=== PATIENT | male | born 1945 | race Caucasian/White ===

== ENCOUNTER 2020-11-25 15:06 | Emergency (ER) | payer MEDICARE, BC ==
[2020-11-25] MEDS ORDERED: fentaNYL 100 MCG/2 ML SDV ONE (16:05)
[2020-11-25] MEDS ORDERED: Midazolam 1 MG/ML 2 ML SDV ONE (16:06)
[2020-11-25] MEDS ORDERED: Midazolam 1 MG/ML 2 ML SDV IVPUSH ONE (16:08)
[2020-11-25] MEDS ORDERED: fentaNYL 100 MCG/2 ML SDV IVPUSH ONE (16:08)
--- NOTE | 2020-11-25 16:38 | EDM.PDOC ---
ED HPI GENERAL MEDICAL PROBLEM - General Chief Complaint: Lower Extremity Injury/Pain Stated Complaint: right hip pain Time Seen by Provider: 11/25/20 15:35 Source of Information: Reports: Patient History Limitations: Reports: No Limitations - History of Present Illness INITIAL COMMENTS - FREE TEXT/NARRATIVE: Sam is a pleasant 75 yo male who presents to the ED with c/o right hip pain. He reports he was crossing his right leg over to tie his shoes and had a popping sensation and instant pain. He reports he has been unable to bear weight since. Does report right DIOR [place] [address] Galvan. Has not had issues with hip since that time but does have some chronic LBP. Has chronic numbness to BLE due to back issues. No changes in baseline sensation of RLE. Is able to wiggle toes. Denies pain at rest. Did receive 100 mcg fentanyl enroute with EMS. ALso took a [facility] tab prior to arrival. He denies any other injury or complaint. Onset: Today, Sudden Onset Date: 11/25/20 Onset Time: 14:00 Duration: Constant Location: Reports: Lower Extremity, Right Quality: Reports: Throbbing Severity: Moderate Improves with: Reports: Cold Therapy, Medication Worsens with: Reports: Movement Associated Symptoms: Reports: No Other Symptoms Treatments FIELD REPRESENTATIVE: Reports: Other Medication(s) ([facility] and fentanyl) Right Hip Pain Score (Numeric/FACES): 5 - Related Data Allergies Allergy/AdvReac Type Severity Reaction Status Date / Time codeine Allergy Nausea and Verified 11/25/20 15:31 Vomiting Home Meds: Home Meds Hydrocodone/Acetaminophen [Hydrocodone-Acetamin 7.5-325] 7.5 mg PO Q6HR PRN 11/25/20 [History] allopurinoL [Zyloprim] 100 mg PO DAILY 11/25/20 [History] Past Medical History Musculoskeletal History: Reports: Gout - Infectious Disease History Infectious Disease History: Reports: None - Past Surgical History HEENT Surgical History: Reports: Eye Surgery Musculoskeletal Surgical History: Reports: Carpal Tunnel, Hip Replacement Social & Family History - Family History Family Medical History: No Pertinent Family History - Tobacco Use Tobacco Use Status *Q: Unknown Ever Used Tobacco - Caffeine Use Caffeine Use: Reports: Coffee - Recreational Drug Use Recreational Drug Use: No Review of Systems - Review of Systems Review Of Systems: Comprehensive ROS is negative, except as noted in HPI. ED EXAM, GENERAL - Physical Exam Exam: See Below Exam Limited By: No Limitations General Appearance: Alert, WD/WN, No Apparent Distress Respiratory/Chest: No Respiratory Distress, Lungs Clear, Normal Breath Sounds, No Accessory Muscle Use, Chest Non-Tender Cardiovascular: Normal Peripheral Pulses, Regular Rate, Rhythm, No Edema, No Gallop, No JVD, No Murmur, No Rub Extremities: No Pedal Edema, Normal Capillary Refill, Joint Swelling (mild swelling of right hip ), Leg Pain (right hip/leg with movement), Limited Range of Motion (unable to flex/extend right hip) Neurological: Alert, Oriented, Normal Cognition, No Motor/Sensory Deficits Psychiatric: Normal Affect, Normal Mood Course - Vital Signs Last Recorded V/S: Last Vital Signs Temp 98.5 F 11/25/20 15:09 Pulse 57 L 11/25/20 15:09 Resp 18 11/25/20 15:09 BP 138/90 11/25/20 15:09 Pulse Ox 99 11/25/20 15:07 - Orders/Labs/Meds Orders: Active Orders 24 hr Category Date Time Status Hip Min 2V or 3V w Pelvis Rt [CR] Stat Exams 11/25/20 15:10 Taken Meds: Medications Discontinued Medications Generic Name Dose Route Start Last Admin Trade Name Rhea PRN Reason Stop Dose Admin Fentanyl 100 mcg 11/25/20 16:08 11/25/20 16:48 Fentanyl 100 Mcg/2 Ml Sdv IVPUSH 11/25/20 16:09 Not Given ONETIME ONE Fentanyl Confirm 11/25/20 16:05 11/25/20 16:48 Fentanyl 100 Mcg/2 Ml Sdv Administered 11/25/20 16:06 Not Given Dose 100 mcg .ROUTE .STK-MED ONE Fentanyl 50 mcg 11/25/20 17:06 11/25/20 17:10 Fentanyl 50 Mcg/Ml Sdv IVPUSH 11/25/20 17:07 50 mcg ONETIME ONE Administration Midazolam HCl 4 mg 11/25/20 16:08 11/25/20 16:48 Midazolam 1 Mg/Ml 2 Ml Sdv IVPUSH 11/25/20 16:09 Not Given ONETIME ONE Midazolam HCl Confirm 11/25/20 16:06 11/25/20 16:48 Midazolam 1 Mg/Ml 2 Ml Sdv Administered 11/25/20 16:07 Not Given Dose 4 mg .ROUTE .STK-MED ONE Departure - Departure Time of Disposition: 16:36 Disposition: DC/Tfer to Acute Hospital 02 Condition: Fair Clinical Impression: Dislocation of hip joint prosthesis Qualifiers: Encounter type: initial encounter Qualified Code(s): T84.029A - Dislocation of unspecified internal joint prosthesis, initial encounter Hip dislocation, right Qualifiers: Encounter type: initial encounter Qualified Code(s): S73.004A - Unspecified dislocation of right hip, initial encounter - Discharge Information *PRESCRIPTION DRUG MONITORING PROGRAM REVIEWED*: Not Applicable *COPY OF PRESCRIPTION DRUG MONITORING REPORT IN PATIENT FIGUEROA: Not Applicable Referrals: Lyric Ayoub, [employer] [Primary Care Provider] - Forms: ED Department Discharge Additional Instructions: - Transfer to [facility] ED via [facility] Sepsis Event Note (ED) - Evaluation Sepsis Screening Result: No Definite Risk - Focused Exam Vital Signs: Vital Signs Temp Pulse Resp BP Pulse Ox 11/25/20 15:09 98.5 F 57 L 18 138/90 11/25/20 15:07 57 L 18 138/90 99 - Problem List & Annotations (1) Dislocation of hip joint prosthesis SNOMED Code(s): 925807845 Code(s): T84.029A - DISLOCATION OF UNSP INTERNAL JOINT PROSTHESIS, INIT ENCNTR; Z96.649 - PRESENCE OF UNSPECIFIED ARTIFICIAL HIP JOINT Status: Acute Qualifiers: Encounter type: initial encounter Qualified Code(s): T84.029A - Dislocation of unspecified internal joint prosthesis, initial encounter; Z96.649 - Presence of unspecified artificial hip joint (2) Hip dislocation, right SNOMED Code(s): 811570646 Code(s): S73.004A - UNSPECIFIED DISLOCATION OF RIGHT HIP, INITIAL ENCOUNTER Status: Acute Qualifiers: Encounter type: initial encounter Qualified Code(s): S73.004A - Unspecified dislocation of right hip, initial encounter - Problem List Review Problem List Initiated/Reviewed/Updated: Yes - My Orders Last 24 Hours: My Active Orders 11/25/20 15:10 Hip Min 2V or 3V w Pelvis Rt [CR] Stat - Assessment/Plan Last 24 Hours: My Active Orders 11/25/20 15:10 Hip Min 2V or 3V w Pelvis Rt [CR] Stat Assessment:: Dislocation of right hip prosthesis Plan: 75 yo male presents with right hip pain. Reports popping sensation and sudden onset pain when crossing his legs to put shoes on. Unable to bear weight following. Status post right DIOR [place] [address] Galvan. Hip series reveal posterior-superior dislocation of right hip arthroplasty. No fracture. Patient pain well controlled when not moving hip. DId receive 1 [facility] as well as 100 mcg fentanyl prior to arrival to ED. Declines need for further pain medication while in ED. DId not attempt reduction given severity of prosthetic dislocation and time frame since dislocation. Consulted with [facility] ED provider, Dr. Banuelos, who accepted the patient for transfer. Patient will be transferred to [facility] via ALS. Discharged from facility in stable condition. Discussed risks and benefits of transfer with patient. Risks of transfer include pain, worsening of condition and MVA enroute. Benefits of transfer include higher level of care with orthopedic consultation. Risks of nontransfer include working of condition, pain, and inability to reduce joint. Benefits of nontransfer include convenience. Patient verbalized understanding and was agreeable to transfer.
[2020-11-25] MEDS ORDERED: Bacitracin/Neomycin/Polymyxin B Oint 0.9 GM U/D Packet TOP ONE (17:02)
[2020-11-25] MEDS ORDERED: fentaNYL 50 MCG/ML SDV IVPUSH ONE (17:06)
== END 2020-11-25 17:26 ==
LOC: CC.ED 15:06
DX: T84.020A Dislocation of internal right hip prosthesis, initial encounter (principal); Z88.5 Allergy status to narcotic agent
CPT/HCPCS: 73502; 96374; 99284; 99285; J3010

== ENCOUNTER 2024-02-13 16:40 | Observation (INO) | payer MEDICARE, BC ==
[2024-02-13] MEDS: Sodium Chloride 0.9% 1,000 ML IV SCH (17:48)
[2024-02-13] MEDS: Ondansetron 4 MG/2 ML SDV IVPUSH PRN (17:48)
[2024-02-13] MEDS ORDERED: Ondansetron 4 MG Tab.DIS PO PRN (18:56)
[2024-02-13] MEDS ORDERED: Acetaminophen 325 MG Tab PO PRN (18:56)
[2024-02-13] MEDS: Docusate Sodium 100 MG Cap PO SCH (20:55)
[2024-02-13] MEDS: Apixaban 5 MG Tab PO SCH (20:55)
[2024-02-13] MEDS: Acetaminophen/oxyCODONE 325-5 MG Tab PO PRN (20:56)
[2024-02-13] MEDS: Hydrocortisone Acetate 25 MG Supp RECTAL PRN (20:56)
[2024-02-13] MEDS: Metoprolol Tartrate 25 MG Tab PO SCH (21:09)
[2024-02-14 07:18] LABS: BASOPHILS ABSOLUTE AUTO 0.02 10^3/uL (0.00-0.50); BASOPHILS PERCENT AUTO 0.3 % (0-1); EOSINOPHILS ABSOLUTE AUTO 0.01 10^3/uL (0.00-1.50); EOSINOPHILS PERCENT AUTO 0.1 % (0-6); HEMATOCRIT 38.4 % (42.0-52.0); HEMOGLOBIN 12.6 g/dL (14.0-18.0); IMMATURE GRAN ABSOLUTE AUTO 0.02 10^3/uL (0.00-0.49); IMMATURE GRAN PERCENT AUTO 0.3 % (0.0-4.9); LYMPHOCYTES ABSOLUTE AUTO 1.04 10^3/uL (0.60-5.00); LYMPHOCYTES PERCENT AUTO 15.5 % (24-44); MEAN CORPUSCULAR HEMOGLOBIN 29.4 pg (27.0-32.0); MEAN CORPUSCULAR HGB CONC 32.8 g/dL (32.0-36.0); MEAN CORPUSCULAR VOLUME 89.5 fL (83.0-97.0); MONOCYTES ABSOLUTE AUTO 0.66 10^3/uL (0.00-1.50); MONOCYTES PERCENT AUTO 9.8 % (0-10); NEUTROPHILS ABSOLUTE AUTO 4.98 x10^3/uL (1.80-8.00); PLATELET COUNT,PLT 221 10^3/uL (150-400); RED BLOOD CELL COUNT 4.29 x10^6/uL (4.50-6.00); WHITE BLOOD CELL COUNT,WBC 6.7 10^3/uL (4.0-11.0)
[2024-02-14 07:37] LABS: ALBUMIN 3.4 g/dL (3.4-5.0); BILIRUBIN TOTAL 0.5 mg/dL (0.0-1.0); C-REACTIVE PROTEIN 0.76 mg/dL (<=0.50); CALCIUM 9.7 mg/dL (8.4-10.1); CREATININE 1.1 mg/dL (0.7-1.3); EST CRCL DRUG DOSING (CG) 62.71 mL/min; POTASSIUM,K 4.3 mEq/L (3.5-5.0); PROTEIN TOTAL,TP 6.5 g/dL (6.4-8.2)
[2024-02-14] MEDS: Gabapentin 300 MG Cap PO SCH (07:45)
[2024-02-14] MEDS: Allopurinol 100 MG Tab PO SCH (07:46)
[2024-02-14] MEDS: PARoxetine 20 MG Tab PO SCH (07:46)
[2024-02-14] MEDS: Lisinopril 10 MG Tab PO SCH (07:46)
[2024-02-14] MEDS: HYDROmorphone 1 MG/ML Syringe IVPUSH PRN (11:03)
[2024-02-14] MEDS: methylPREDNISolone Sodium Succinate 40 MG/1 ML SDV IM ONE (14:59)
== END 2024-02-14 15:30 | disposition home or self-care (01) ==
LOC: UNDOADMOB 16:40 → CC.MS 16:40
PROVIDERS: ADMIT Nurse Practitioner Family; ATTEND Nurse Practitioner Family
DX: K64.8 Other hemorrhoids (principal); K62.89 Other specified diseases of anus and rectum; F32.A Depression, unspecified; F41.9 Anxiety disorder, unspecified; Z79.899 Other long term (current) drug therapy; Z88.5 Allergy status to narcotic agent
CPT/HCPCS: 36415; 74177; 80053; 85025; 86140; 96372; 99223; 99238; A9270-GY; J1170; J2405; J2919; J7030; Q9967